=== PATIENT | female | born 1970 | race Asian ===

== ENCOUNTER → 2023-12-13 | Outpatient (CLI) | payer BC, SELFPAY ==
--- NOTE | 2023-12-13 08:53 | XR_ITS ---
Examination: PA lateral chest 2 views TECHNIQUE: Upright PA lateral chest 2 views Exam date and time: December 13, 2023 0916 hours Comparison November 18, 2023 INDICATIONS: Shortness of breath one month FINDINGS: Significant parenchymal disease in the lingular segment left upper lobe Right lung clear Normal heart size Intact osseous structures IMPRESSION: Pneumonia lingular segment left upper lobe
[2023-12-13 09:43] LABS: Alanine Aminotransferase 23 U/L (10-49); Albumin, Serum 4.3 gm/dL (3.5-5.0); Alkaline Phosphatase 80 U/L (46-116); Aspartate Amino Transferase 20 U/L (0-34); Bilirubin,Direct 0.2 mg/dL (0.0-0.3); Bilirubin,Total 0.5 mg/dL (0.3-1.2); Total Protein 7.6 gm/dL (5.7-8.2)
== END | disposition home or self-care (01) ==
LOC: COPL 08:26
PROVIDERS: PCP Internal Medicine; Referring Provider Internal Medicine; Visit Provider Radiology Diagnostic Radiology
DX: J18.9 Pneumonia, unspecified organism (principal); B38.0 Acute pulmonary coccidioidomycosis
CPT/HCPCS: 36415; 71046; 80076

== ENCOUNTER → 2023-12-21 | Outpatient (CLI) | payer BC, SELFPAY ==
[2023-12-21 08:53] LABS: Alanine Aminotransferase 19 U/L (10-49); Albumin, Serum 4.3 gm/dL (3.5-5.0); Alkaline Phosphatase 78 U/L (46-116); Aspartate Amino Transferase 15 U/L (0-34); Bilirubin,Direct 0.1 mg/dL (0.0-0.3); Bilirubin,Total 0.4 mg/dL (0.3-1.2); Total Protein 7.4 gm/dL (5.7-8.2)
== END | disposition home or self-care (01) ==
PROVIDERS: PCP Internal Medicine; Referring Provider Internal Medicine; Visit Provider Internal Medicine
DX: B38.0 Acute pulmonary coccidioidomycosis (principal)
CPT/HCPCS: 36415; 80076

== ENCOUNTER → 2023-12-28 | Outpatient (CLI) | payer BC, SELFPAY ==
[2023-12-28 09:50] LABS: Alanine Aminotransferase 21 U/L (10-49); Albumin, Serum 4.4 gm/dL (3.5-5.0); Alkaline Phosphatase 70 U/L (46-116); Aspartate Amino Transferase 19 U/L (0-34); Bilirubin,Direct 0.1 mg/dL (0.0-0.3); Total Protein 7.6 gm/dL (5.7-8.2)
[2023-12-28 14:59] LABS: Bilirubin,Total 0.4 mg/dL (0.3-1.2)
== END | disposition home or self-care (01) ==
PROVIDERS: PCP Internal Medicine; Referring Provider Internal Medicine; Visit Provider Internal Medicine
DX: B38.0 Acute pulmonary coccidioidomycosis (principal)
CPT/HCPCS: 36415; 80076

== ENCOUNTER → 2024-01-11 | Outpatient (CLI) | payer BC, SELFPAY ==
[2024-01-11 09:11] LABS: Alanine Aminotransferase 19 U/L (10-49); Albumin, Serum 4.4 gm/dL (3.5-5.0); Alkaline Phosphatase 80 U/L (46-116); Aspartate Amino Transferase 16 U/L (0-34); Bilirubin,Direct 0.1 mg/dL (0.0-0.3); Bilirubin,Total 0.3 mg/dL (0.3-1.2); Total Protein 7.4 gm/dL (5.7-8.2)
== END | disposition home or self-care (01) ==
LOC: COPL 07:16
PROVIDERS: PCP Internal Medicine; Referring Provider Internal Medicine; Visit Provider Internal Medicine
DX: B38.0 Acute pulmonary coccidioidomycosis (principal)
CPT/HCPCS: 36415; 80076

== ENCOUNTER → 2024-02-22 | Outpatient (CLI) | payer BC, SELFPAY ==
[2024-02-22 08:07] LABS: Basophils # (Auto) 0.1 Thou/mm3 (0.0-0.2); Basophils % (Auto) 1 % (0-2.5); Eosinophils # (Auto) 0.2 Thou/mm3 (0.0-0.5); Eosinophils % (Auto) 2 % (0-10); Hematocrit 41.9 % (36.0-46.0); Hemoglobin 14.1 g/dL (12.0-16.0); Immature Granulocytes % (Auto) 1 % (0-0); Immature Granulocytes Auto 0.04 Thou/mm3 (0.00-0.00); Lymphocytes # (Auto) 2.5 Thou/mm3 (1.0-4.8); Lymphocytes % (Auto) 34 % (10-50); Mean Corpuscular HGB Conc 33.7 g/dl (31.0-37.0); Mean Corpuscular Hemoglobin 28.4 pg (25.0-35.0); Mean Corpuscular Volume 84 fL (80-100); Monocytes # (Auto) 0.6 Thou/mm3 (0.0-0.8); Monocytes % (Auto) 9 % (0-12); Neutrophils % (Auto) 54 % (37-80); Nucleated Red Blood Cell % 0 /100 WBC (0); Platelet Count 328 Thou/mm3 (140-440); RDW Standard Deviation 41.2 fL (36.4-46.3); Red Blood Count 4.97 Miln/mm3 (4.00-5.20); White Blood Count 7.4 Thou/mm3 (3.6-11.0)
[2024-02-22 08:24] LABS: Alanine Aminotransferase 12 U/L (10-49); Albumin, Serum 4.7 gm/dL (3.5-5.0); Albumin/Globulin Ratio 1.5 (1.2-2.2); Alkaline Phosphatase 74 U/L (46-116); Anion Gap 9 (7-16); Aspartate Amino Transferase 13 U/L (0-34); BUN/Creatinine Ratio 26 Ratio (12-20); Bilirubin,Total 0.3 mg/dL (0.3-1.2); Blood Urea Nitrogen 21 mg/dL (9-23); Calcium 10.2 mg/dL (8.3-10.6); Calcium (Corrected) 10.2 mg/dL (8.5-10.1); Carbon Dioxide 31.5 mMol/L (20.0-31.0); Cardiac Risk Estimate 4.8 RATIO (3.7-5.6); Chloride 103 mMol/L (98-107); Cholesterol 226 mg/dL (132-200); Creatinine (Component) 0.8 mg/dL (0.6-1.3); Free T4 (Free Thyroxine) 1.17 ng/dL (0.89-1.76); Globulin 3.1 gm/dL (2.3-3.5); Glucose 100 mg/dL (74-106); HDL Cholesterol 47 mg/dL (40-60); LDL Cholesterol,Calculated 139 mg/dL (0-130); Osmolality,Calculated 287 (275-295); Potassium 4.8 mMol/L (3.4-5.1); Sodium 143 mMol/L (136-145); Thyroid Stimulating Hormone 1.44 uIU/mL (0.55-4.78); Total Protein 7.8 gm/dL (5.7-8.2); Triglycerides 199 mg/dL (30-150); eGFR > 60 See Note
== END | disposition home or self-care (01) ==
LOC: COPL 07:08
PROVIDERS: PCP Internal Medicine; Referring Provider Internal Medicine; Visit Provider Internal Medicine
DX: I10 Essential (primary) hypertension (principal); E78.5 Hyperlipidemia, unspecified
CPT/HCPCS: 36415; 80053; 80061; 84439; 84443; 85025

== ENCOUNTER → 2024-03-07 | Outpatient (CLI) | payer BC, SELFPAY ==
--- NOTE | 2024-03-07 15:30 | XR_ITS ---
Examination: CT chest, without intravenous contrast. Sagittal and coronal 2-D reconstructions. Exam date and time: March 07, 2024 1540 hours Comparison November 16, 2023 INDICATIONS: Diagnosis coccidiomycosis CTDI:vol (mGy) 9.49 DLP: (mGycm) 286 Technique: Multiple 3.0 mm axial sections of the chest to been obtained. Bone and lung density settings are obtained. Sagittal and coronal 2-D reconstructions have been obtained. Low dose protocols were performed. One or more of the following dose reduction techniques were used; automated exposure control, adjustment of the mA and/or KV according to patient size, use of iterative reconstruction technique. Findings: No thoracic aortic aneurysmal dilatation Pulmonary artery segments are not enlarged No paratracheal tracheobronchial or bronchopulmonary adenopathy Scarring at the left apex and lingular segment with marked improvement compared to the November 16, 2023 exam No active infiltrates No pleural disease Diffuse fatty infiltration throughout the liver IMPRESSION: Scarring at the left apex and lingular segment with marked improvement compared to the November 16, 2023 exam
== END | disposition home or self-care (01) ==
LOC: CCTX 15:14
PROVIDERS: PCP Internal Medicine; Referring Provider Internal Medicine; Visit Provider Internal Medicine
DX: R91.8 Other nonspecific abnormal finding of lung field (principal)
CPT/HCPCS: 71250

== ENCOUNTER → 2024-03-21 | Outpatient (CLI) | payer BC, SELFPAY ==
[2024-03-21 10:23] LABS: Coccid Serology, CF (UCD)* See Sep Rpt
[2024-03-21 11:12] LABS: Basophils % (Auto) 0 % (0-2.5); Eosinophils # (Auto) 0.2 Thou/mm3 (0.0-0.5); Eosinophils % (Auto) 3 % (0-10); Hematocrit 40.5 % (36.0-46.0); Hemoglobin 13.7 g/dL (12.0-16.0); Immature Granulocytes % (Auto) 1 % (0-0); Immature Granulocytes Auto 0.03 Thou/mm3 (0.00-0.00); Lymphocytes # (Auto) 1.9 Thou/mm3 (1.0-4.8); Lymphocytes % (Auto) 35 % (10-50); Mean Corpuscular HGB Conc 33.8 g/dl (31.0-37.0); Mean Corpuscular Volume 83 fL (80-100); Monocytes # (Auto) 0.6 Thou/mm3 (0.0-0.8); Monocytes % (Auto) 11 % (0-12); Neutrophils # (Auto) 2.8 Thou/mm3 (1.8-7.7); Neutrophils % (Auto) 51 % (37-80); Nucleated Red Blood Cell % 0 /100 WBC (0); Platelet Count 243 Thou/mm3 (140-440); RDW Standard Deviation 40.8 fL (36.4-46.3); White Blood Count 5.5 Thou/mm3 (3.6-11.0)
[2024-03-21 11:37] LABS: Alanine Aminotransferase 22 U/L (10-49); Albumin, Serum 4.5 gm/dL (3.5-5.0); Albumin/Globulin Ratio 1.5 (1.2-2.2); Alkaline Phosphatase 78 U/L (46-116); Anion Gap 10 (7-16); Aspartate Amino Transferase 21 U/L (0-34); BUN/Creatinine Ratio 21 Ratio (12-20); Bilirubin,Total 0.5 mg/dL (0.3-1.2); Blood Urea Nitrogen 19 mg/dL (9-23); Calcium 10.1 mg/dL (8.3-10.6); Calcium (Corrected) 10.1 mg/dL (8.5-10.1); Carbon Dioxide 32.5 mMol/L (20.0-31.0); Chloride 103 mMol/L (98-107); Creatinine (Component) 0.9 mg/dL (0.6-1.3); Globulin 3.1 gm/dL (2.3-3.5); Glucose 103 mg/dL (74-106); Osmolality,Calculated 290 (275-295); Potassium 3.5 mMol/L (3.4-5.1); Sodium 145 mMol/L (136-145); Total Protein 7.6 gm/dL (5.7-8.2); eGFR > 60 See Note
== END | disposition home or self-care (01) ==
LOC: COPL 10:10
PROVIDERS: PCP Internal Medicine; Referring Provider Internal Medicine; Visit Provider Internal Medicine
DX: B38.0 Acute pulmonary coccidioidomycosis (principal); I10 Essential (primary) hypertension
CPT/HCPCS: 36415; 80053; 85025; 86171

== ENCOUNTER → 2024-09-16 | Outpatient (CLI) | payer BC, SELFPAY ==
[2024-09-16 09:45] LABS: Alanine Aminotransferase 19 U/L (10-49); Albumin, Serum 4.6 gm/dL (3.5-5.0); Albumin/Globulin Ratio 1.5 (1.2-2.2); Alkaline Phosphatase 74 U/L (46-116); Anion Gap 10 (7-16); Aspartate Amino Transferase 19 U/L (0-34); BUN/Creatinine Ratio 18 Ratio (12-20); Bilirubin,Total 0.4 mg/dL (0.3-1.2); Blood Urea Nitrogen 18 mg/dL (9-23); Calcium 10.0 mg/dL (8.3-10.6); Calcium (Corrected) 10.0 mg/dL (8.5-10.1); Carbon Dioxide 28.8 mMol/L (20.0-31.0); Cardiac Risk Estimate 5.6 RATIO (3.7-5.6); Chloride 104 mMol/L (98-107); Cholesterol 242 mg/dL (132-200); Creatinine (Component) 1.0 mg/dL (0.6-1.3); Globulin 3.0 gm/dL (2.3-3.5); Glucose 106 mg/dL (74-106); HDL Cholesterol 43 mg/dL (40-60); LDL Cholesterol,Calculated 152 mg/dL (0-130); Osmolality,Calculated 286 (275-295); Potassium 5.0 mMol/L (3.4-5.1); Sodium 143 mMol/L (136-145); Total Protein 7.6 gm/dL (5.7-8.2); Triglycerides 236 mg/dL (30-150); eGFR > 60 See Note
== END | disposition home or self-care (01) ==
LOC: COPL 08:41
PROVIDERS: PCP Internal Medicine; Referring Provider Internal Medicine; Visit Provider Internal Medicine
DX: E78.5 Hyperlipidemia, unspecified (principal); I10 Essential (primary) hypertension
CPT/HCPCS: 36415; 80053; 80061

== ENCOUNTER → 2024-10-10 | Outpatient (CLI) | payer BC, SELFPAY ==
--- NOTE | 2024-10-10 12:20 | XR_ITS ---
Examination: Bone densitometry Date and time of exam:October 10, 2024 1307 hours INDICATIONS: Menopause age 48 Technique: Lumbar spine and hip total bone mineralization values of an calculated. Peak reference and age match control results have been displayed. Findings: Lumbar spine total bone mineralization is1.031 gm/cm2. This is 0.1 standard deviations below peak reference. This is 0.9 standard deviations above age-matched controls. Hip total bone mineralization is 0.949 gm/cm2 This is 0.1 standard deviations above peak reference. This is 0.7 standard deviations above age-matched controls Impression: There is normal mineralization based on lumbar spine measurements. There is normal mineralization based on hip measurements
== END | disposition home or self-care (01) ==
PROVIDERS: PCP Internal Medicine; Referring Provider Internal Medicine; Visit Provider Internal Medicine
DX: M81.0 Age-related osteoporosis without current pathological fracture (principal)
CPT/HCPCS: 77080